=== PATIENT | male | born 1965 | race Caucasian/White ===

== ENCOUNTER → 2020-10-26 | Outpatient (CLI) | payer BC | LOC: KOH-I 11:42 | DX: M47.26 Other spondylosis with radiculopathy, lumbar region (principal); R26.2 Difficulty in walking, not elsewhere classified | CPT/HCPCS: 72100 ==

== ENCOUNTER → 2021-06-11 | Outpatient (CLI) | payer BC | LOC: KOH-I 11:59 | DX: M99.53 Intervertebral disc stenosis of neural canal of lumbar region (principal); M47.26 Other spondylosis with radiculopathy, lumbar region; E11.9 Type 2 diabetes mellitus without complications; I10 Essential (primary) hypertension; E78.5 Hyperlipidemia, unspecified; K76.0 Fatty (change of) liver, not elsewhere classified; Z85.46 Personal history of malignant neoplasm of prostate; Z98.1 Arthrodesis status | CPT/HCPCS: 72100 ==